=== PATIENT | female | born 1955 | race Caucasian/White ===

== ENCOUNTER 2016-08-06 02:21 | Inpatient (IN) ==
[2016-07-25 12:53] LABS: MANUAL DIFF NEEDED? NO; URINE MICRO REVIEW NEEDED? NO; URINE SOURCE CLEAN CATCH
--- NOTE | 2016-07-25 12:54 | EKG Report ---
Test Performed on : 07/25/2016 12:21:40 PM Test Reason : PAT Blood Pressure : / mmHG Vent. Rate : 048 BPM Atrial Rate : 048 BPM P-R Int : 214 ms QRS Dur : 080 ms QT Int : 424 ms P-R-T Axes : 012 -12 020 degrees QTc Int : 378 ms Sinus bradycardia. with sinus arrhythmia. with 1st degree AV block. Low voltage QRS Borderline ECG No previous ECGs available Confirmed by Josesito CALLOWAY, Filipe Kumar ([id number]) on 07/25/2016 3:57:07 PM
[2016-07-25 13:07] LABS: BILIRUBIN URINE NEGATIVE (NEGATIVE); BLOOD URINE NEGATIVE (NEGATIVE); COLOR YELLOW; GLUCOSE URINE NEGATIVE (NEGATIVE); LEUKOCYTES URINE NEGATIVE (NEGATIVE); NITRITE URINE NEGATIVE (NEGATIVE); PROTEIN URINE NEGATIVE (NEGATIVE); SP GRAVITY URINE 1.006; TURBIDITY URINE CLEAR (CLEAR); UROBILINOGEN URINE NORMAL (NORMAL)
[2016-07-25 13:08] LABS: UR EPITHELIAL CELLS <10 /HPF (<10); URINE BACTERIA NEGATIVE /HPF; URINE RBC <10 /HPF (<10); URINE WBC <10 /HPF (<10)
[2016-07-25 13:19] LABS: BASO% 0.6 % (0.0-0.8); EOS# 0.17 X1000 (0.0-0.7); EOS% 3.5 % (0.0-10.0); HEMATOCRIT 41.7 % (37.0-47.0); HEMOGLOBIN 14.2 g/dL (12.0-16.0); LYMPH# 2.21 X1000 (1.2-3.4); LYMPH% 45.2 % (20.5-51.1); MCH 32.1 PG (27-31); MCHC 34.1 g/dL (33-37); MCV 94.1 FL (81-99); MONO# 0.53 X1000 (0.11-0.59); MONO% 10.8 % (1.7-9.3); MPV 10.2 FL (7.4-10.4); NEUT% 39.9 % (42.2-75.2); PLT 242 X1000 (130-400); RBC 4.43 XMIL (4.2-5.4)
[2016-07-25 13:29] LABS: INR 0.99; PROTIME 10.4 Seconds (9.2-11.7); PTT 26.7 Seconds (22.0-36.0)
[2016-07-25 13:36] LABS: AGAP 13; BUN 11 mg/dL (8-22); CALCIUM 9.8 mg/dL (8.8-10.2); CHLORIDE 94 mmol/L (98-107); COSMO 268; SODIUM 134 mmol/L (136-145); TCO2 27 mmol/L (25-35)
[2016-08-06] MEDS ORDERED: PEPCID ONE (08:05)
[2016-08-06] MEDS ORDERED: COLACE ONE (08:05)
[2016-08-06] MEDS ORDERED: REGLAN ONE (08:05)
[2016-08-06] MEDS ORDERED: LYRICA ONE (08:05)
[2016-08-06] MEDS ORDERED: LR 1,000 ML ONE (08:06)
[2016-08-06] MEDS ORDERED: CELEBREX ONE (08:06)
[2016-08-06] MEDS ORDERED: KEFZOL 1 GM/D5W 1 GM/50 ML IVPB ONE (08:09)
[2016-08-06] MEDS ORDERED: TORADOL ONE (09:10)
[2016-08-06] MEDS ORDERED: NEOSPORIN G.U. IRRIGANT ONE (09:11)
[2016-08-06] MEDS ORDERED: CYKLOKAPRON 1,000 MG/NS 1,000 MG/100 ML IVPB ONE (09:11)
[2016-08-06] MEDS ORDERED: SODIUM CHLORIDE 0.9% ONE (09:11)
[2016-08-06] MEDS ORDERED: EXPAREL 1.3% ONE (09:11)
[2016-08-06] MEDS ORDERED: MARCAINE 0.25% PF/EPI 1:200,000 ONE (09:12)
[2016-08-06 10:20] LABS: URINE MICRO REVIEW NEEDED? NO; URINE SOURCE CATH
[2016-08-06 10:23] LABS: BILIRUBIN URINE NEGATIVE (NEGATIVE); BLOOD URINE NEGATIVE (NEGATIVE); COLOR YELLOW; GLUCOSE URINE NEGATIVE (NEGATIVE); LEUKOCYTES URINE NEGATIVE (NEGATIVE); NITRITE URINE NEGATIVE (NEGATIVE); PH URINE 7.5; PROTEIN URINE NEGATIVE (NEGATIVE); SP GRAVITY URINE 1.017; TURBIDITY URINE HAZY (CLEAR); UR EPITHELIAL CELLS <10 /HPF (<10); URINE BACTERIA NEGATIVE /HPF; URINE RBC <10 /HPF (<10); URINE WBC <10 /HPF (<10); UROBILINOGEN URINE NORMAL (NORMAL)
[2016-08-06] MEDS ORDERED: VERSED ONE (12:15)
[2016-08-06] MEDS ORDERED: FENTANYL ONE (12:15)
[2016-08-06] MEDS ORDERED: DIPRIVAN 1% 500 MG/50 ML BOTTLE ONE (12:16)
[2016-08-06] MEDS ORDERED: NS 1,000 ML ONE (12:35)
[2016-08-06] MEDS ORDERED: MILK OF MAGNESIA PO PRN (13:00)
[2016-08-06] MEDS ORDERED: ZOFRAN IV PRN (13:00)
[2016-08-06] MEDS ORDERED: AMBIEN PO PRN (13:00)
[2016-08-06] MEDS ORDERED: MORPHINE IV PRN (13:00)
[2016-08-06] MEDS ORDERED: OXY IR PO PRN (13:00)
[2016-08-06] MEDS ORDERED: OFIRMEV 1000 MG/ISOTONIC SOLN 1,000 MG/100 ML BOTTLE ONE (13:07)
[2016-08-06] MEDS ORDERED: DECADRON ONE (13:07)
[2016-08-06] MEDS ORDERED: EPHEDRINE ONE (13:07)
[2016-08-06] MEDS ORDERED: LR 2,000 ML ONE (13:07)
[2016-08-06] MEDS ORDERED: ZOFRAN ONE (13:07)
[2016-08-06] MEDS: NS 1,000 ML IV SCH (13:15)
--- NOTE | 2016-08-06 13:43 | OPERATIVE NOTE ---
PROCEDURE DATE: 08/06/2016 PREOPERATIVE DIAGNOSIS: Left hip degenerative joint disease. POSTOPERATIVE DIAGNOSIS: Left hip degenerative joint disease. PROCEDURE: Left anterior total hip arthroplasty. ANESTHESIA: Spinal. SURGEON: Chaz Gallegos MD MARINE PIPEFITTER: WOOD Ramirez COMPLICATIONS: None. BLOOD LOSS: Minimal. DRAINS: Hemovac x1. DESCRIPTION OF PROCEDURE: The patient brought to the operative suite and placed in supine position. Under successful administration of spinal anesthesia, the patient was placed on the OSI table in the usual position for left hip and the left hip was prepped and draped in the usual sterile fashion. A longitudinal incision was made beginning 2 cm distal 2 cm lateral to the anterior superior iliac spine extended distally and slightly laterally 8 cm. It was dissected sharply through the skin subcutaneous tissue down to the tensor fascia. The tensor fascia was incised and dissected bluntly down deep tensor fascia. The tensor fascia was incised and the circumflex vessels were electrocauterized, exposing the anterior capsule after elevating the rectus femoris anteriorly. A T-capsulotomy was performed, exposing the femoral neck and the femoral neck cut was made with the oscillating saw. The femoral head was removed with the power corkscrew. The labrum was resected sharply and then the acetabulum was serially reamed to a 58 to accept a 58 cup. The 58 hemispherical shell was then driven into place in the proper amount of inclination, anteversion, and two 6.5 cancellous screws were placed 1 superiorly at 35 mm and 1 posterior superiorly at 30 mm. Excellent placement of the screws and the cup was obtained. The liner was locked onto the shell and then attention was directed to the femur. The femur was externally rotated, extended, adducted, and elevated out of the wound with the hook on the OSI bed. The lateral neck was rongeured. The canal was serially broached to a size 9. A size 9 high offset neutral length neck 36 mm was trialed, and found to be excellent leg length, offset, fit and stability of the hip. The trial was removed. The definitive stem was locked on the femur. The Biolox Delta ceramic femoral head, 36 mm neutral was locked onto the stem and then the hip was copiously irrigated and dried, and then the hip was reduced. The x-ray again showed it to be in excellent position. The hip was copiously infiltrated with Exparel, including posterior capsule, anterior capsule, the anterior musculature and subcutaneous tissue. The anterior capsule was repaired with 0 V-Loc suture. The tensor fascia was closed with running of the like suture and then the skin edge approximated with 2-0 Vicryl. The skin was closed with Monocryl and then Prineo. A sterile dressing was placed over the drain, which was placed deep to the tensor fascia. The patient tolerated the procedure well without complication. At the end the procedure, all counts correct x2. The patient was transferred to the recovery room in stable condition. cc: Chaz Gallegos MD
[2016-08-06] MEDS ORDERED: ROBAXIN PO PRN (14:10)
[2016-08-06] MEDS: TYLENOL PO SCH ×2 (15:42→21:36)
[2016-08-06] MEDS: ULTRAM PO SCH ×2 (15:43→21:36)
[2016-08-06] MEDS ORDERED: CYKLOKAPRON 1,000 MG in NS 100 ML IV ONE (16:10)
[2016-08-06] MEDS: KEFZOL 1 GM/D5W 1 GM/50 ML IVPB IV SCH (18:00)
[2016-08-06] MEDS ORDERED: PATIENT'S OWN MED PO SCH (21:00)
[2016-08-06] MEDS ORDERED: CELEBREX PO SCH (21:00)
[2016-08-06] MEDS: COLACE PO SCH (21:36)
[2016-08-06] MEDS: LYRICA PO SCH (21:36)
[2016-08-06] MEDS: PATIENT'S OWN MED PO SCH ×2 (21:37→23:46)
[2016-08-06] MEDS: PERIDEX MT SCH (21:38)
[2016-08-07] MEDS: KEFZOL 1 GM/D5W 1 GM/50 ML IVPB IV SCH (01:45)
[2016-08-07] MEDS: NS 1,000 ML IV SCH (01:45)
[2016-08-07] MEDS: TYLENOL PO SCH ×2 (01:45→08:57)
[2016-08-07] MEDS: ULTRAM PO SCH ×2 (01:45→08:57)
[2016-08-07] MEDS ORDERED: XARELTO PO SCH (06:00)
[2016-08-07 06:08] LABS: HEMATOCRIT 29.3 % (37.0-47.0); HEMOGLOBIN 9.8 g/dL (12.0-16.0)
[2016-08-07 06:26] LABS: AGAP 8; BUN 7 mg/dL (8-22); CALCIUM 8.5 mg/dL (8.8-10.2); CHLORIDE 103 mmol/L (98-107); COSMO 270; POTASSIUM 4.4 mmol/L (3.5-5.1); SODIUM 136 mmol/L (136-145); TCO2 25 mmol/L (25-35)
[2016-08-07 07:57] VITALS: BP 116/71
[2016-08-07] MEDS: COLACE PO SCH (08:56)
[2016-08-07] MEDS: PERIDEX MT SCH (08:56)
[2016-08-07] MEDS: LYRICA PO SCH (08:57)
[2016-08-07] MEDS ORDERED: DECADRON IV ONE (09:00)
[2016-08-07] MEDS ORDERED: THERA M PLUS PO SCH (09:00)
[2016-08-07] MEDS ORDERED: CULTURELLE PO SCH (09:00)
[2016-08-07] MEDS: PATIENT'S OWN MED PO SCH ×2 (09:00→09:01)
[2016-08-07] MEDS ORDERED: PEPCID PO SCH (09:00)
[2016-08-07] MEDS ORDERED: GLUCOSAMINE 500 MG/CHONDROITIN 400 MG PO SCH (09:00)
[2016-08-07] MEDS ORDERED: PATIENT'S OWN MED PO SCH ×4 (09:00)
[2016-08-07] MEDS ORDERED: MAG-OX PO SCH (09:00)
--- NOTE | 2016-08-07 20:26 | DISCHARGE SUMMARY ---
ADMISSION DATE: 08/06/2016 DISCHARGE DATE: 08/07/2016 DISCHARGE DIAGNOSIS: Left hip degenerative joint disease status post left total hip arthroplasty. DISCHARGE MEDICATIONS: See discharge medication list. DISPOSITION: The patient is discharged home with home health. DISCHARGE INSTRUCTIONS: Return to see Dr. Gallegos next . HOSPITAL COURSE: On the day of admission, patient underwent a left total hip arthroplasty. Her postoperative course was unremarkable. At discharge she is afebrile, tolerating a regular diet. Ambulating well with Physical Therapy. Today she walked 250 feet. Her hemoglobin is 9.8, her hematocrit is 29.3. She had 300 mL of drainage from her Hemovac. Her wound is clean, dry, and intact without sign of infection. She is discharged home with home health in stable condition and with instructions to follow up as described above. Dictated by WOOD Centeno for Chaz Gallegos MD cc: WOOD Centeno MD
== END 2016-08-07 13:59 | disposition home health service (06) ==
LOC: SURHOLD 02:21 → 4N 09:59
PROVIDERS: ADMIT Orthopaedic Surgery; ATTEND Orthopaedic Surgery